=== PATIENT | female | born 1990 ===

== ENCOUNTER 2017-03-24 06:55 | Day surgery (SDC) | payer BC ==
[2017-03-24 07:20] VITALS: BMI 28.3
[2017-03-24] MEDS ORDERED: Lactated Ringer's 500 ML IV ONE (08:55)
--- NOTE | 2017-03-24 08:55 | CP.SDSHP ---
Same Day Surgery H & P - History Proposed Procedure: colonoscopy Pre-Op Diagnosis: colitis - Allergies Allergies: Allergies No Known Allergies Allergy (Verified 03/24/17 07:20) - Physical Exam General Appearance: NAD Vital Signs: Vital Signs 03/24/17 07:24 Temperature 98 F Pulse Rate 79 Respiratory 18 Rate Blood Pressure 116/65 O2 Sat by Pulse 97 Oximetry Mental Status: Alert & Oriented x3 Neuro: WNL Heart: WNL Lungs: WNL GI: WNL - {Optional Preform as Required} Abdomen: WNL - Impression Pt. Evaluated Today:Candidate for Anesthesia & Procedure: Yes - Date & Time Date: 03/24/17 Time: 08:55 Short Stay Discharge - Short Stay Discharge Admitting Diagnosis/Reason for Visit: COLITIS Disposition: HOME/ ROUTINE
[2017-03-24] MEDS ORDERED: Propofol 10 mg/ml Inj (20 ML) ONE ×2 (09:01→09:27)
[2017-03-24 09:09] VITALS: O2SAT 100
[2017-03-24] MEDS ORDERED: Lactated Ringer's 500 ML IV SCH (09:15)
[2017-03-24 09:57] VITALS: TEMP 97.8
[2017-03-24 10:22] VITALS: BP 112/71; PULSE 58; RESP 14
== END 2017-03-24 10:42 | disposition home or self-care (01) ==
LOC: C.ENDO 06:55
PROVIDERS: ATTEND Internal Medicine Gastroenterology
DX: D12.2 Benign neoplasm of ascending colon (principal); D12.5 Benign neoplasm of sigmoid colon; D12.3 Benign neoplasm of transverse colon; K64.8 Other hemorrhoids
CPT/HCPCS: 45380; 84703; 88305; J2704; J3010; J7120

== ENCOUNTER 2017-04-06 07:20 | Day surgery (SDC) | payer BC ==
[2017-04-06 08:10] VITALS: BMI 29.0
[2017-04-06 08:22] VITALS: O2SAT 100
[2017-04-06] MEDS ORDERED: Propofol 10 mg/ml Inj (20 ML) ONE ×3 (09:40→10:25)
[2017-04-06] MEDS ORDERED: Lactated Ringer's 1,000 ML IV ONE (09:45)
--- NOTE | 2017-04-06 09:45 | CP.SDSHP ---
Same Day Surgery H & P - History Proposed Procedure: EGD Pre-Op Diagnosis: h/o colon polyposis - Allergies Allergies: Allergies No Known Allergies Allergy (Verified 04/06/17 08:10) - Physical Exam General Appearance: NAD Vital Signs: Vital Signs 04/06/17 08:13 Temperature 98.9 F Pulse Rate 75 Respiratory 19 Rate Blood Pressure 109/70 O2 Sat by Pulse 100 Oximetry Mental Status: Alert & Oriented x3 Neuro: WNL Heart: WNL Lungs: WNL GI: WNL - {Optional Preform as Required} Abdomen: WNL - Impression Pt. Evaluated Today:Candidate for Anesthesia & Procedure: Yes - Date & Time Date: 04/06/17 Time: 09:45 Short Stay Discharge - Short Stay Discharge Admitting Diagnosis/Reason for Visit: PERSONAL HISTORY OF COLONIC POLYPS Disposition: HOME/ ROUTINE
[2017-04-06 14:23] VITALS: TEMP 98
[2017-04-06 14:33] VITALS: BP 110/74; PULSE 80; RESP 18
== END 2017-04-06 11:25 | disposition home or self-care (01) ==
LOC: C.ENDO 07:20
PROVIDERS: ATTEND Internal Medicine Gastroenterology
DX: K29.60 Other gastritis without bleeding (principal); K31.7 Polyp of stomach and duodenum
CPT/HCPCS: 43270; 84703; 88305; J2704; J7120